=== PATIENT | male | born 1990 | race Caucasian/White ===

== ENCOUNTER 2021-08-01 08:40 | Emergency (ER) | payer OTHER ==
[2021-08-01 09:31] LABS: HEMOGLOBIN 17.8 gm/dl (14.0-17.5); RED BLOOD COUNT 5.52 M/UL (4.20-5.50)
[2021-08-01 09:49] LABS: BUN/CREATININE RATIO 10 (0-10)
[2021-08-01] MEDS ORDERED: ZOFRAN 4 MG TAB4 MG PO (11:39)
== END 2021-08-01 11:43 | disposition home or self-care (01) ==
LOC: ER1 08:40
PROVIDERS: Emergency Medicine
DX: K76.0 Fatty (change of) liver, not elsewhere classified (principal)
CPT/HCPCS: 80053; 81001; 83690; 85025; 96374; 96375; 99284; J2270; J2405; Q9967